=== PATIENT | female | born 1995 | race Hispanic/Latino ===

== ENCOUNTER 2020-10-16 03:54 | Emergency (ER) | payer OTHER ==
[2020-10-16] MEDS ORDERED: Ondansetron ODT 8 MG TAB ONE (04:42)
[2020-10-16 05:15] LABS: #Basophils 0.1 thou/uL (0.0-0.2); #Eosinphils 0.1 thou/uL (0.0-0.7); #Monocytes 0.6 thou/uL (0.11-0.59); #Neutrophils 13.3 thou/uL (1.40-6.50); %Basophils 0.6 % (0.0-1.0); %Eosinophils 0.5 % (0.0-10.0); %Lymphocytes 12.2 % (21.0-51.0); %Monocytes 3.9 % (0.0-10.0); %Neutrophils 82.8 % (42.0-75.0); Hemoglobin 14.9 g/dL (12.0-16.0); Mean Corpuscular HGB CONC 34.1 g/dL (32.0-36.0); Mean Corpuscular Hemoglobin 31.9 pg (27.0-31.0); Mean Corpuscular Volume 93.4 fL (78.0-98.0); Platelet Count 316 thou/uL (130-400); RBC Distribution Width 11.4 % (11.5-14.5); Red Blood Cell (RBC) Count 4.67 mill/uL (4.20-5.40)
[2020-10-16] MEDS ORDERED: Promethazine HCl 25 MG/ML VIAL ONE (05:17)
[2020-10-16 05:21] LABS: BHCG - Serum Negative (NEGATIVE); Pregs Control Background? CLEAR/WHITE (CLR/WHITE); Pregs Control Bar Appear? YES (CONTROL BAR)
[2020-10-16 05:36] LABS: ALT (SGPT) 25 U/L (8-55); AST (SGOT) 26 U/L (5-34); Albumin 4.1 g/dL (3.5-5.0); Alkaline Phosphatase 32 U/L (40-110); Anion Gap 18 mmol/L (10-20); BUN (Urea Nitrogen) 12 mg/dL (7.0-18.7); Bilirubin, Total 0.8 mg/dL (0.2-1.2); Calc. Creatinine Clearance 0 mL/min (70-130); Calcium 9.4 mg/dL (7.8-10.44); Carbon Dioxide 20 mmol/L (22-29); Chloride 103 mmol/L (98-107); Estimated GFR-MDRD 68; Globulin 2.9 g/dL (2.4-3.5); Glucose 209 mg/dL (70-105); Lipase 9 U/L (8-78); Sodium 138 mmol/L (136-145)
[2020-10-16 06:21] LABS: Bilirubin Negative (Negative); Blood, Urine 2+ (Negative); Clarity Clear (Clear); Glucose, Urine (Dipstick) 30 mg/dL (Negative); Ketone, Urine 40 mg/dL (Negative); Leukocyte Negative Leu/uL (Negative); Mucous/LPF 2+ LPF (<2+); Nitrite Negative (Negative); Protein, Urine (Dipstick) 20 mg/dL (Neg-Trace); Urobilinogen Normal mg/dL (Less than 2); pH, Urine 6.5 (5.0-9.0)
[2020-10-16 06:24] LABS: Bacteria/HPF 1+ HPF (None Seen)
[2020-10-16] MEDS ORDERED: Lidocaine Viscous Sol 2% 15 ml UD Cup ONE (07:11)
[2020-10-16] MEDS ORDERED: Mag-Al 1200 mg/1200 mg/30 ML UDCUP ONE (07:11)
== END 2020-10-16 07:09 | disposition home or self-care (01) ==
LOC: ERS 03:54
DX: R11.2 Nausea with vomiting, unspecified (principal)
CPT/HCPCS: 80053; 81003; 81015; 83690; 84703; 85025; 96365; J2550; Q0162